=== PATIENT | female | born 1960 | race Caucasian/White ===

== ENCOUNTER 2024-06-17 02:26 | Outpatient (CLI) | payer BC, SELFPAY ==
--- NOTE | 2024-06-17 | DI.DEXA_ITS ---
Exam(s) XR DEXA BONE DENSITY W/WO LOLLY EXAM: XR DEXA BONE DENSITY W/WO LOLLY CLINICAL HISTORY: OSTEOPOROSIS M81.0 PATHOLOGICAL FX PRESENCE TECHNIQUE: Routine DEXA evaluation of the lumbar spine, hip, or forearm. COMPARISON: No exams were available for comparison FINDINGS: Performed on a Hologic unit. Lateral image: No compression fracture evident. Lumbar Spine total T-score: -2.1 Hip total T-score:-0.4 Independent reading at the level of the femoral neck yields T-score of -1.2 Forearm total T-score: 0.1 IMPRESSION: Bone mineral density measures in the osteopenia range. Fracture risk is moderate. Note: Any spine fracture indicates 5x risk for subsequent spine fracture and 2x risk for subsequent h ip fracture. World Health Organization criteria for BMD interpretation classify patients: Normal...... T- Score at or above -1.0 Osteopenic... T- Score between -1.0 and -2.5 Osteoporosis... T-Score at or below -2.5
== END 2024-06-17 02:46 ==
DX: M81.0 Age-related osteoporosis without current pathological fracture (principal)
CPT/HCPCS: 77080

== ENCOUNTER 2024-06-17 03:50 | Outpatient (CLI) | payer BC, SELFPAY ==
[2024-06-17] MEDS: Inhaler, Assist Device 1 EACH MC (14:03)
[2024-06-17] MEDS: Levalbuterol HFA 15 GM INH 4 PUFF IH (14:03)
--- NOTE | 2024-06-28 14:45 | W.PFT ---
Date of service: 06/17/24 Time of Service: 12:53 Pulmonary Function Test Result Indications: Dyspnea Interpretation Spirometry: No airflow limitation. No bronchodilator response. Lung Volumes: Normal lung volumes Diffusion Capacity: Normal diffusion Airway Pressure: Normal airways resistance Impression Normal pulmonary function testing Clinical Correlation therefore is recommended.
== END 2024-06-17 03:51 | disposition home or self-care (01) ==
LOC: RT 03:50
PROVIDERS: Visit Provider Student in an Organized Health Care Education/Training Program
DX: R06.02 Shortness of breath (principal); J44.9 Chronic obstructive pulmonary disease, unspecified
CPT/HCPCS: 94060; 94726; 94729